=== PATIENT | female | born 1985 | race Caucasian/White ===

== ENCOUNTER 2016-05-30 09:12 | Emergency (ER) | payer OTHER ==
[~2016-05-30] VITALS: Ht 162.6 cm; Wt 72.5 kg
[~2016-05-30 09:12] MED LIST: NOHOMEMEDS
[2016-05-30 10:03] LABS: EOSINOPHIL COUNT 0.3 K/uL (0-0.3); HEMATOCRIT 35.3 % (36.0-46.0); IMMATURE GRANULOCYTE (%) 0.3 % (0.0-0.7); LYMPHOCYTE COUNT 2.2 K/uL (1.0-2.8); MCH 30.7 PG (29.0-34.0); MCHC 33.7 G/DL (30.0-36.0); MEAN PLAT.VOLUME 10.4 uM^3 (9.5-12.4); MONOCYTE (%) 9.3 % (3-12); MONOCYTE COUNT 0.9 K/uL (0-0.8); NEUTROPHIL (%) 63.9 % (45-76); PLATELET COUNT 265 K/uL (156-360); RBC DIS.WIDTH-CV 12.7 % (11.8-14.6); RBC DIS.WIDTH-SD 42.2 % (39-53); RED BLOOD COUNT 3.88 M/uL (3.80-5.20); WHITE BLOOD COUNT 9.3 K/uL (4.1-10.2)
[2016-05-30 10:16] LABS: CHLORIDE 107 mEq/L (99-109); SODIUM 137 mEq/L (136-147)
[2016-05-30 10:18] LABS: GLUCOSE 85 mg/dL (70-99)
[2016-05-30 10:19] LABS: ANION GAP 7 MEQ/L (2-14)
[2016-05-30 10:22] LABS: GFR ESTIMATE (CALCULATED) > 59 mL/min/
[2016-05-30 10:23] LABS: UREA NITROGEN (BUN) 11 mg/dL (9-23)
[2016-05-30 10:54] LABS: QUANTITATIVE HCG 69456.9 MIU/ML
[2016-05-30 12:49] VITALS: BP 114/70
== END 2016-05-30 12:50 | disposition home or self-care (01) ==
LOC: EME 09:12
PROVIDERS: Emergency Medicine
DX: O20.0 Threatened abortion (principal); O99.331 Smoking (tobacco) complicating pregnancy, first trimester; Z3A.08 8 weeks gestation of pregnancy
CPT/HCPCS: 76801; 80048; 84702; 85025; 86900; 86901; 99281; 99284